=== PATIENT | male | born 1955 | race Caucasian/White ===

== ENCOUNTER 2018-07-09 11:51 | Day surgery (SDC) | payer OTHER ==
[2018-07-08 16:03] VITALS: BMI 24.4
[2018-07-09 14:35] VITALS: TEMP 97.5
[2018-07-09 15:28] VITALS: BP 130/80; PULSE 78
--- NOTE | 2018-07-11 16:55 | PATH ---
Surgical Pathology Report Patient Name: RICKI MORLEY [facility]. Rec. #: [id number] /Age/Gender: 1955 (Age: 63) / M Account: [id number] Location: U-ENDOSCOPY Taken: 07/09/2018 Received: 07/10/2018 Reported: 07/11/2018 Physicians: Tobias Velasquez D.O. Specimen(s) Received A: BX CARDIA B: BX ANTRUM AND BODY C: BX GE JUNCTION D: BX TRANSVERSE COLON POLYP E: BX RIGHT COLON POLYP F: RECTAL POLYP Clinical History Constipation, reflux Postoperative diagnosis: Gastritis, colon polyps, hemorrhoids Final Diagnosis A. STOMACH, CARDIA, BIOPSY: GASTRIC CARDIAC TYPE MUCOSA WITH MILD CHRONIC GASTRITIS. IMMUNOHISTOCHEMICAL STAIN FOR H. PYLORI IS NEGATIVE. B. STOMACH, ANTRUM AND BODY, BIOPSY: GASTRIC MUCOSA WITH MILD CHRONIC GASTRITIS. IMMUNOHISTOCHEMICAL STAIN FOR H. PYLORI IS NEGATIVE. C. GE JUNCTION, BIOPSY: SQUAMOCOLUMNAR MUCOSA WITH MILD ACUTE AND CHRONIC INFLAMMATION AND CHANGES OF MODERATE REFLUX ESOPHAGITIS. NO INTESTINAL METAPLASIA OR DYSPLASIA IDENTIFIED. D. TRANSVERSE COLON, POLYP, POLYPECTOMY: POLYPOID COLONIC MUCOSA WITH SUPERFICIAL HYPERPLASTIC FEATURES. E. COLON, RIGHT, POLYP, BIOPSY: TUBULAR ADENOMA. F. RECTUM, POLYPS, BIOPSY: TUBULAR ADENOMA. HYPERPLASTIC POLYP. Electronically Signed Joleen Childs M.D. Gross Description A. Received in formalin, labeled "biopsy cardia" are 2 sylvester, irregular portions of soft tissue averaging 0.3 cm. in greatest dimension. The specimens are submitted in toto in one cassette. B. Received in formalin, labeled "biopsy antrum and body" are 2 sylvester, irregular portions of soft tissue measuring 0.2 and 0.3 cm. in greatest dimension. The specimens are submitted in toto in one cassette. C. Received in formalin, labeled "biopsy GE junction" is a sylvester, irregular portion of soft tissue measuring 0.4 cm. in greatest dimension. The specimen is submitted in toto in one cassette. D. Received in formalin, labeled "polyp transverse colon" is a sylvester, irregular portion of soft tissue measuring 0.4 cm. in greatest dimension. The specimen is submitted in toto in one cassette. E. Received in formalin, labeled "biopsy right colon polyp" is a sylvester, irregular portion of soft tissue measuring 0.3 cm. in greatest dimension. The specimen is submitted in toto in one cassette. F. Received in formalin, labeled "biopsy rectal polyps" are 2 sylvester, irregular portions of soft tissue averaging 0.3 cm. in greatest dimension. The specimens are submitted in toto in one cassette. 07/10/201807/10/2018
== END 2018-07-09 15:29 ==
LOC: JASU-ENDO 11:51
PROVIDERS: ATTEND Internal Medicine Gastroenterology
PROC: 0DBK8ZX Excision of Ascending Colon, Via Natural or Artificial Opening Endoscopic, Diagnostic (ICD-10-PCS; 2018-07-09)
PROC: 0DBP8ZX Excision of Rectum, Via Natural or Artificial Opening Endoscopic, Diagnostic (ICD-10-PCS; 2018-07-09)
PROC: 0DBL8ZX Excision of Transverse Colon, Via Natural or Artificial Opening Endoscopic, Diagnostic (ICD-10-PCS; principal; 2018-07-09 12:15)
DX: Z12.11 Encounter for screening for malignant neoplasm of colon (principal); Z86.010 Personal history of colon polyps; K64.8 Other hemorrhoids; K62.1 Rectal polyp; D12.2 Benign neoplasm of ascending colon; D12.3 Benign neoplasm of transverse colon
CPT/HCPCS: 82962; 88305-TC; 88342-TC

== ENCOUNTER 2022-11-01 04:30 | Day surgery (SDC) | payer OTHER ==
[2022-10-31 09:11] VITALS: BMI 25.9
[2022-11-01] MEDS ORDERED: MIDAZOLAM HCL 2 MG/2 ML SINGLE DOSE VIAL ONE ×2 (10:11→11:13)
[2022-11-01] MEDS ORDERED: FENTANYL CITRATE/PF 50 MCG/ML VIAL ONE ×3 (10:11→11:23)
[2022-11-01] MEDS ORDERED: MIDAZOLAM HCL 2 MG/2 ML SINGLE DOSE VIAL IVPUSH ONE ×4 (10:49→11:25)
[2022-11-01] MEDS ORDERED: FENTANYL CITRATE/PF 50 MCG/ML VIAL IVPUSH ONE ×4 (10:49→11:25)
[2022-11-01 14:23] VITALS: RESP 18
[2022-11-01 14:25] VITALS: PULSE 88; TEMP 98.4
[2022-11-01 14:41] VITALS: BP 139/79
== END 2022-11-01 14:20 | disposition home or self-care (01) ==
LOC: JRADIR 04:30
PROVIDERS: ATTEND Urology
PROC: 0T25X0Z Change Drainage Device in Kidney, External Approach (ICD-10-PCS; principal; 2022-11-01)
PROC: 0T768DZ Dilation of Right Ureter with Intraluminal Device, Via Natural or Artificial Opening Endoscopic (ICD-10-PCS; 2022-11-01)
DX: Z43.6 Encounter for attention to other artificial openings of urinary tract (principal); N13.9 Obstructive and reflux uropathy, unspecified
CPT/HCPCS: 50435; 50693; 82962